=== PATIENT | male | born 1995 | race Caucasian/White ===

== ENCOUNTER 2017-02-15 19:31 | Emergency (ER) | payer OTHER ==
[~2017-02-15] VITALS: Ht 177.8 cm; Wt 101.8 kg
[2017-02-15] MEDS ORDERED: AUGMENTIN875 MG PO (21:35)
[2017-02-15 22:36] VITALS: BP 147/94
== END 2017-02-15 22:38 | disposition home or self-care (01) ==
LOC: EME 19:31
DX: S61.432A Puncture wound without foreign body of left hand, initial encounter (principal); W54.0XXA Bitten by dog, initial encounter; Z20.3 Contact with and (suspected) exposure to rabies; Z23 Encounter for immunization; Z29.14 Encounter for prophylactic rabies immune globulin
CPT/HCPCS: 99281; 99284

== ENCOUNTER 2017-02-22 07:26 | Emergency (ER) | payer OTHER ==
[~2017-02-22] VITALS: Ht 175.3 cm; Wt 100.1 kg
[~2017-02-22 07:26] MED LIST: AUGMENTIN875 MG PO
[2017-02-22 08:57] VITALS: BP 127/81
== END 2017-02-22 08:59 | disposition home or self-care (01) ==
LOC: EME 07:26
PROC: 3E0234Z Introduction of Serum, Toxoid and Vaccine into Muscle, Percutaneous Approach (ICD-10-PCS; principal; 2017-02-22)
DX: Z23 Encounter for immunization (principal); S60.572D Other superficial bite of hand of left hand, subsequent encounter; W54.0XXD Bitten by dog, subsequent encounter
CPT/HCPCS: 99281; 99283

== ENCOUNTER 2017-03-01 07:56 | Emergency (ER) | payer OTHER ==
[~2017-03-01] VITALS: Ht 175.3 cm; Wt 103.0 kg
[2017-03-01 09:52] VITALS: BP 128/83
== END 2017-03-01 09:53 | disposition home or self-care (01) ==
LOC: EME 07:56
PROC: 3E0234Z Introduction of Serum, Toxoid and Vaccine into Muscle, Percutaneous Approach (ICD-10-PCS; principal; 2017-03-01)
DX: S61.452D Open bite of left hand, subsequent encounter (principal); W54.0XXD Bitten by dog, subsequent encounter; Z20.3 Contact with and (suspected) exposure to rabies
CPT/HCPCS: 99281; 99283